=== PATIENT | female | born 1965 | race Two or more races ===

== ENCOUNTER 2023-06-19 00:34 | Emergency (ER) | payer OTHER ==
[~2023-06-19] VITALS: Ht 149.9 cm; Wt 59.4 kg
[2023-06-19] MEDS ORDERED: IRBESARTAN75 MG PO (00:50)
[2023-06-19] MEDS ORDERED: FAMOTIDINE/PF 20 MG/2 ML VIAL IV PUSH STA (02:31)
[2023-06-19] MEDS ORDERED: ONDANSETRON HCL 2 MG/ML VIAL IV STA (02:33)
[2023-06-19 03:10] LABS: URINE APPEARANCE Clear; URINE BILIRRUBIN Negative (NEGATIVE); URINE BLOOD Negative; URINE COLOR Yellow; URINE GLUCOSE Negative (NEGATIVE); URINE LEUKOCYTE Negative; URINE NITRATE Negative; URINE PROTEIN Negative (NEGATIVE); URINE UROBILINOGEN 0.2 E.U./dl
[2023-06-19 03:12] LABS: HEMATOCRIT 40.8 % (36.0-45.00); HEMOGLOBIN 13.6 g/dL (12.0-15.00); MEAN CELL VOLUME 87.4 fL (80.00-100.00); MEAN CORPUSCULAR HEMOGLOBIN 29.2 pg (27.00-32.0); MEAN CORPUSCULAR HGB CONC 33.4 g/dl (32.0-36.0); PLATELET COUNT 344 K/uL (150-450); RED BLOOD COUNT 4.67 M/uL (4.00-6.00); RED CELL DISTRIBUTION WIDTH 15.8 % (11.5-14.5)
[2023-06-19 03:13] LABS: URINE BACTERIA 23.9 uL (0.0-1933); URINE EPITHELIAL CELLS 1.5 uL (0.0-38.8)
[2023-06-19 03:18] LABS: URINE RBC 0.5 uL (0.0-20.8); URINE WBC 0.3 uL (0.0-23.2)
[2023-06-19 03:26] LABS: ALBUMIN 3.9 gm/dL (3.4-5.0); BILIRUBIN TOTAL 0.38 mg/dL (0.3-1.2); CALCIUM 9.4 mg/dL (8.5-10.1); CREATININE SERUM 0.72 mg/dL (0.55-1.02); GFR 84.1; GLOBULINA 3.1 G/DL (2.4-3.5); POTASSIUM 3.97 mEq/L (3.5-5.1)
[2023-06-19] MEDS ORDERED: ONDANSETRON ODT4 MG PO (06:04)
[2023-06-19] MEDS ORDERED: PEPCID40 MG PO (06:04)
[2023-06-19] MEDS ORDERED: PROTONIX40 MG PO (06:04)
== END 2023-06-19 06:12 ==
LOC: ER 00:35
PROVIDERS: General Practice
DX: R10.13 Epigastric pain (principal); Z88.0 Allergy status to penicillin

== ENCOUNTER 2024-08-20 18:58 | Emergency (ER) | payer OTHER ==
[~2024-08-20] VITALS: Ht 149.9 cm; Wt 62.6 kg
[~2024-08-20 18:58] MED LIST: IRBESARTAN75 MG PO; ONDANSETRON ODT4 MG PO; PEPCID40 MG PO; PROTONIX40 MG PO
[2024-08-20] MEDS ORDERED: KETOROLAC TROMETHAMINE 30 MG VIAL IM STA (20:09)
[2024-08-20] MEDS ORDERED: ORPHENADRINE CITRATE 30 MG/ML AMPUL IM STA (20:10)
[2024-08-20] MEDS ORDERED: KETOROLAC TROMETHAMINE 30 MG VIAL ONE (20:14)
[2024-08-20] MEDS ORDERED: ORPHENADRINE CITRATE 30 MG/ML AMPUL ONE (20:14)
== END 2024-08-20 21:47 | disposition home or self-care (01) ==
LOC: ER 18:58
DX: M25.511 Pain in right shoulder (principal); Z88.0 Allergy status to penicillin